=== PATIENT | male | born 1960 | race Caucasian/White ===

== ENCOUNTER 2024-12-11 11:02 | Emergency (ER) | payer MEDICARE, BC, SELFPAY ==
[2024-12-11 11:09] VITALS: BP 149/89
--- NOTE | 2024-12-11 13:15 | ED.GENMED ---
History of Present Illness
General
Chief Complaint: Head Injury
Time Seen by Provider: 12/11/24 13:02
History of Present Illness
History of Present Illness:
64-year-old male presents the emergency department for the nasal bridge. He was exercising on a weight bench when the bench collapsed and he struck his face against a barbell. No loss of consciousness. Denies any dizziness or headaches at this
time, admits he does have some degree of chronic dizziness from his finasteride and Flomax use. Does not take a blood thinner. Last tetanus unknown
Past History
Past History
ED Past Medical History: None
ED Past Surgical History: Orthopedic
Social History
Tobacco: Non-smoker
Review of Systems
Review of Systems
Allergies reviewed?: Yes
All Other Systems: ROS reviewed and negative except as documented in HPI and ROS
Phy Exam
Physical Exam
Physical Exam:
GEN: Well appearing, NAD, WDWN
HEENT: Oral mucosa moist, no scleral icterus. 1 cm stellate laceration to the nasal bridge, no active bleeding, no nasal septal hematoma or significant ecchymosis
Cardiac: Regular rate
Lung: No respiratory distress, no tachypnea
MSK: No gross deformity or injuries
Skin: Good color, no pallor or jaundice, no rashes
Neuro: AO x3; CN II-XII grossly intact. BUE strength 5/5 in all toth, sensation intact and symmetric. BLE strength 5/5 in all toth, sensation intact and symmetric
Psych: Calm, cooperative
Course
Orders/Labs/Results
Orders:
Orders
12/11/24 13:15
Tetanus/Diphth/Acelpertussis [Adacel] 0.5 ml IM .ONCE ONE
Vital Signs
Initial and Last Documented VS:
Initial Vital Signs
Temp Pulse Resp BP Pulse Ox
97.9 F 98 16 149/89 98
12/11/24 11:09 12/11/24 11:09 12/11/24 11:09 12/11/24 11:09 12/11/24 11:09
Last Documented Vital Signs
Temp Pulse Resp BP Pulse Ox
97.9 F 98 16 149/89 98
12/11/24 11:09 12/11/24 11:09 12/11/24 11:09 12/11/24 11:09 12/11/24 11:09
Procedures
Laceration Closure
Nasal bridge:
Status of Wound: clean
Size of Wound in cm: 1
Description of Wound Edges: sharp
Preparation: cleaned with saline
Wound exploration: explored to base- no FB
Type of Closure: Dermabond-skin glue
MDM/Problems Addressed
MDM/Problems Addressed:
No significant traumatic findings to suggest nasal bone or facial bones fracture. Neurologically intact no indication for CT of the head. Wound repaired with glue at the bedside
*Critical Care Note
Total Time (30-74mins, 75-104mins- exclusive of procedures): Not Applicable
ED Attending Note
-
Portions of this chart may have been created with voice recognition software.� Occasional wrong word or��sound alike� substitutions may have occurred due to the inherent limitations of voice recognition software.
Discharge Plan
Departure
Patient Disposition: Home (Routine Discharge)
Date of Disposition: 12/11/24
Time of Disposition: 13:17
Patient with high blood pressure during this ER visit?: No
Discharge Problem:
Laceration of nose
Instructions: Laceration Repair With Glue (DC)
Referrals:
Mamadou Aleman MD [Family Provider] -
Interventions
Interventions:
*Risk Screen - Suicide Last Done: 12/11/24 13:01
*General Assessment Last Done: 12/11/24 13:01
*Neglect/Abuse Screening Last Done: 12/11/24 13:01
*ED COVID-19 Vaccine History Last Done: 12/11/24 13:01
*Nursing Disposition Last Done: 12/11/24 14:11
ED- Neurological Assessment Last Done: 12/11/24 13:00
ED-Skin Assessment Last Done: 12/11/24 13:00
Discharge Date and Time
Discharge Date/Time: 12/11/24 14:12
Print Language: BULGARIAN
[2024-12-11] MEDS: ADACEL 0.5 ML IM (13:33)
== END 2024-12-11 14:12 | disposition home or self-care (01) ==
LOC: EMR 11:02
PROVIDERS: EMERGENCY PHYSICIAN Emergency Medicine; FAMILY PHYSICIAN Family Medicine
DX: S01.21XA Laceration without foreign body of nose, initial encounter (principal); X58.XXXA Exposure to other specified factors, initial encounter; Z23 Encounter for immunization
CPT/HCPCS: 99282; 12011; 90471; 90715

== ENCOUNTER 2025-02-28 10:55 | Emergency (ER) | payer MEDICARE, BC, SELFPAY ==
[2025-02-28 11:05] VITALS: BP 172/92
[2025-02-28 11:16] VITALS: BMI 27.5
--- NOTE | 2025-02-28 11:33 | ED.GENMED ---
Addendum entered and electronically signed by Kota Herrera DO 02/28/25 14:28:
pt accepted at [facility]
[id number]
Addendum entered and electronically signed by Kota Herrera DO 02/28/25 14:00:
Update, reviewed with crisis patient much better after some Ativan continues to be voluntary
Original Note:
History of Present Illness
General
Chief Complaint: Suicidal Ideation
Source: patient and family
Exam Limitations: none
Time Seen by Provider: 02/28/25 11:18
Nursing documentation reviewed up to this point in time: agreed with
History of Present Illness
History of Present Illness:
64-year-old male long history of anxiety on Paxil recently got has some business issues has some pain in his right hip has not slept for a few weeks, last night thought about harming his self put a tie around his neck did not actually jump,
called his son, who brought him in here today, never been hospitalized before he has no ligature, no trouble breathing
Past History
Past History
ED Past Medical History: None
ED Past Surgical History: Orthopedic
Social History
Tobacco: Non-smoker
Phy Exam
Physical Exam
Physical Exam:
Physical Exam
General: no apparent distress, not acutely ill
Neck: No ligature no stridor
Heart: s1/s2 regular rate and rhythm, no murmur. equal radial pulses.
Lungs: no acute respiratory distress. clear bilaterally
Neuro: alert and oriented. no focal neurological deficits
Skin: no rash
Psychiatric: Cooperative, appears anxious
Extremities: no edema.
Course
Orders/Labs/Results
Orders:
Orders
02/28/25 11:09
1:1 Observation - Suicide/ Violent Behavior As Directed
02/28/25 11:33
Crisis Consult Urgent
Reason for Consult: si
Lorazepam [Ativan] 1 mg PO NOW STA
Vital Signs
Initial and Last Documented VS:
Initial Vital Signs
Temp Pulse Resp BP Pulse Ox
97.8 F 89 18 172/92 96
02/28/25 11:05 02/28/25 11:05 02/28/25 11:05 02/28/25 11:05 02/28/25 11:05
Last Documented Vital Signs
Temp Pulse Resp BP Pulse Ox
97.8 F 89 18 172/92 96
02/28/25 11:05 02/28/25 11:05 02/28/25 11:05 02/28/25 11:05 02/28/25 11:05
MDM/Problems Addressed
Differential Diagnosis Includes:
Anxiety depression suicidal ideation
MDM/Problems Addressed:
Suicidal ideation failed attempt
*Critical Care Note
Total Time (30-74mins, 75-104mins- exclusive of procedures): Not Applicable
Update Note
Update Note:
Update patient voluntarily agrees to go inpatient
ED Attending Note
-
Portions of this chart may have been created with voice recognition software.� Occasional wrong word or��sound alike� substitutions may have occurred due to the inherent limitations of voice recognition software.
Discharge Plan
Departure
Patient Disposition: Psych Facility
Date of Disposition: 02/28/25
Time of Disposition: 12:32
Condition: Good
Discharge Problem:
Suicidal ideation
Interventions
Interventions:
*Risk Screen - Suicide Last Done: 02/28/25 11:05
*General Assessment Last Done: 02/28/25 11:05
*Neglect/Abuse Screening Last Done: 02/28/25 11:16
*ED- Fall Risk Assessment Last Done: 02/28/25 11:16
*ED COVID-19 Vaccine History Last Done: 02/28/25 11:05
ED-Psychological Assessment Last Done: 02/28/25 11:16
Discharge Date and Time
Print Language: THAI
[2025-02-28] MEDS: ATIVAN 1 MG PO ×2 (11:38→18:23)
[2025-02-28 19:00] VITALS: BP 145/82
== END 2025-02-28 23:53 ==
LOC: EMR 10:55
PROVIDERS: EMERGENCY PHYSICIAN Emergency Medicine
DX: R45.851 Suicidal ideations (principal); F41.9 Anxiety disorder, unspecified; M25.551 Pain in right hip; Z79.899 Other long term (current) drug therapy; Z63.5 Disruption of family by separation and divorce
CPT/HCPCS: 99285

== ENCOUNTER → 2025-03-06 10:10 | Outpatient (REF) | payer MEDICARE, BC, SELFPAY | LOC: PAVMRI 10:10 | PROVIDERS: ATTENDING PHYSICIAN Physician Assistant; FAMILY PHYSICIAN Family Medicine | DX: M25.551 Pain in right hip (principal); M54.50 Low back pain, unspecified | CPT/HCPCS: 72148; 73721 ==